=== PATIENT | male | born 1975 | race Caucasian/White ===

== ENCOUNTER 2017-11-11 06:56 | Emergency (ER) | payer MEDICAID, OTHER, SELFPAY ==
[2017-11-11] MEDS ORDERED: Cephalexin 250 MG CAP ONE (07:38)
[2017-11-11] MEDS ORDERED: Sulfameth/Trimethoprim DS 800-160mg TAB ONE (07:38)
[2017-11-11] MEDS ORDERED: Spironolactone 25 MG TAB ONE (07:38)
== END 2017-11-11 07:50 | disposition home or self-care (01) ==
LOC: MADERS 06:56
DX: T63.301A Toxic effect of unspecified spider venom, accidental (unintentional), initial encounter (principal); L08.9 Local infection of the skin and subcutaneous tissue, unspecified; L98.499 Non-pressure chronic ulcer of skin of other sites with unspecified severity
CPT/HCPCS: 99282

== ENCOUNTER 2017-11-14 14:53 | Emergency (ER) | payer SELFPAY ==
[2017-11-14 15:34] LABS: #Basophils 0.2 thou/uL (0.0-0.2); #Eosinphils 0.1 thou/uL (0.0-0.7); #Lymphocytes 2.3 thou/uL (1.20-3.40); #Neutrophils 8.7 thou/uL (1.40-6.50); %Basophils 1.4 % (0.0-1.0); %Eosinophils 0.8 % (0.0-10.0); %Lymphocytes 18.4 % (21.0-51.0); %Monocytes 8.4 % (0.0-10.0); %Neutrophils 71.1 % (42.0-75.0); Hemoglobin 14.8 g/dL (14.0-18.0); Mean Corpuscular HGB CONC 32.9 g/dL (32.0-36.0); Mean Corpuscular Hemoglobin 29.1 pg (27.0-31.0); Mean Corpuscular Volume 88.4 fl (80.0-94.0); Mean Platelet Volume 6.7 fL (7.4-10.4); Platelet Count 277 thou/uL (130-400); RBC Distribution Width 11.9 % (11.5-14.5); White Blood Cell (WBC) Count 12.2 thou/uL (4.8-10.8)
[2017-11-14 15:51] LABS: Anion Gap 14 mmol/L (10-20); BUN (Urea Nitrogen) 13 mg/dL (8.9-20.6); Calc. Creatinine Clearance 0 mL/min (70-130); Calcium 9.4 mg/dL (7.8-10.44); Carbon Dioxide 23 mmol/L (22-29); Chloride 103 mmol/L (98-107); Estimated GFR-MDRD 89; Glucose 93 mg/dL (70-105); Potassium 4.2 mmol/L (3.5-5.1); Sodium 136 mmol/L (136-145)
[2017-11-14] MEDS ORDERED: Lidocaine 2% w/Epinephrine 1:200K 20 ML VIAL ONE (15:54)
[2017-11-14] MEDS ORDERED: Adacel (T-DAP) 0.5 ML VIAL ONE (16:20)
== END 2017-11-14 18:00 | disposition home or self-care (01) ==
LOC: MADERS 14:53
DX: L03.114 Cellulitis of left upper limb (principal)
CPT/HCPCS: 10060; 80048; 85025; 90471; 90715; 96365; J3370; J7050

== ENCOUNTER 2017-11-15 16:02 | Emergency (ER) | payer SELFPAY ==
[2017-11-15] MEDS ORDERED: HYDROcodone/Acetaminophen 10/325 mg Tablet ONE (16:46)
[2017-11-15] MEDS ORDERED: Acetaminophen 325 MG TAB ONE (16:47)
[2017-11-15] MEDS ORDERED: Ibuprofen 800 MG TAB ONE (16:47)
== END 2017-11-15 16:57 | disposition home or self-care (01) ==
LOC: MADERS 16:02
DX: Z48.817 Encounter for surgical aftercare following surgery on the skin and subcutaneous tissue (principal); Z48.01 Encounter for change or removal of surgical wound dressing
CPT/HCPCS: 99282